=== PATIENT | female | born 1950 | race Hispanic/Latino ===

== ENCOUNTER 2021-10-13 11:33 | Emergency (ER) | payer MEDICARE ==
[~2021-10-13] VITALS: Ht 162.6 cm; Wt 102.1 kg
[2021-10-13] MEDS ORDERED: METOPROLOL TARTRATE 1 MG/ML 5ML VIAL IV SCH (12:00)
[2021-10-13] MEDS ORDERED: LACTATED RINGERS 1000ML 1,000 ML IV SCH (12:00)
[2021-10-13] MEDS ORDERED: LACTATED RINGERS 1000ML 1,000 ML IV ONE (12:05)
[2021-10-13] MEDS ORDERED: METOPROLOL TARTRATE 1 MG/ML 5ML VIAL IV ONE (12:05)
[2021-10-13 12:31] LABS: B-TYPE NATRIURETIC PEPTIDE 164 pg/mL (0-100)
[2021-10-13 12:34] LABS: BASOPHILS % (AUTO) 0.3 % (0.0-5.0); EOSINOPHILS % (AUTO) 1.1 % (0.0-8.0); HEMATOCRIT 44.3 % (36-48); LYMPHOCYTES % (AUTO) 36.9 % (21.0-51.0); MEAN CORPUSCULAR HEMOGLOBIN 30.5 pg (27.0-33.0); MEAN CORPUSCULAR VOLUME 92.5 fL (79-99); MONOCYTES % (AUTO) 9.5 % (3.0-13.0); NEUTROPHILS % (AUTO) 51.9 % (40.0-77.0); PLATELET COUNT (AUTO) 270 K/uL (130-400); RED BLOOD CELL COUNT(AUTO) 4.79 MIL/uL (4.00-5.50); RED CELL DISTRIBUTION WIDTH 14.3 % (11.0-15.5); WHITE BLOOD COUNT (AUTO) 6.2 K/uL (4.8-10.8)
[2021-10-13 12:38] LABS: INR 1.03 (0.85-1.15); PROTHROMBIN TIME 11.2 SEC (9.6-11.6)
[2021-10-13 12:39] LABS: PARTIAL THROMBOPLASTIN TIME 27.2 SEC (26.3-35.5)
[2021-10-13 12:43] LABS: MAGNESIUM 1.8 mg/dL (1.80-2.40)
[2021-10-13 13:07] LABS: ALBUMIN 3.5 g/dL (3.5-5.0); BILIRUBIN,TOTAL 0.4 mg/dL (0.2-1.0); CREATININE 0.7 mg/dL (0.5-1.5); POTASSIUM 4.6 mmol/L (3.5-5.1)
[2021-10-13 14:05] VITALS: BP 120/65
== END 2021-10-13 14:46 | disposition home or self-care (01) ==
LOC: EDH 11:33
DX: I48.20 Chronic atrial fibrillation, unspecified (principal); E78.00 Pure hypercholesterolemia, unspecified; E86.0 Dehydration; Z79.01 Long term (current) use of anticoagulants; Z88.6 Allergy status to analgesic agent
CPT/HCPCS: 36415; 71045; 80053; 82550; 83735; 83880; 84484; 85025; 85378; 85610; 85730; 93005 ×2; 96361; 96374; 99285; J3490; J7120

== ENCOUNTER → 2022-08-27 | Outpatient (CLI) | payer MEDICARE ==
[2022-08-27 12:43] LABS: ALBUMIN 3.8 g/dL (3.5-5.0); CREATININE 0.8 mg/dL (0.5-1.5); POTASSIUM 4.2 mmol/L (3.5-5.1); TOTAL PROTEIN, SERUM 7.3 g/dL (6.0-8.3)
== END | disposition home or self-care (01) ==
LOC: LAB 11:23
PROVIDERS: ATTEND Student in an Organized Health Care Education/Training Program
DX: I10 Essential (primary) hypertension (principal)
CPT/HCPCS: 36415; 80053

== ENCOUNTER → 2022-09-14 | Outpatient (CLI) | payer MEDICARE ==
[~2022-09-14] MED LIST: IOHEXOL-350 50ML VIAL IV ONE
== END | disposition home or self-care (01) ==
LOC: RAH 09:49
PROVIDERS: ATTEND Student in an Organized Health Care Education/Training Program
DX: I25.10 Atherosclerotic heart disease of native coronary artery without angina pectoris (principal)
CPT/HCPCS: 75574; Q9967

== ENCOUNTER → 2022-09-16 | Outpatient (CLI) | payer MEDICARE ==
[2022-09-16 16:38] LABS: CHOLESTEROL 215 mg/dL (<200); HDL CHOLESTEROL 76 mg/dL (35-85); LDL DIRECT 119 mg/dL (0-99); TRIGLYCERIDES 108 mg/dL (30-200)
== END | disposition home or self-care (01) ==
LOC: LAB 11:44
PROVIDERS: ATTEND Student in an Organized Health Care Education/Training Program
DX: E78.5 Hyperlipidemia, unspecified (principal)
CPT/HCPCS: 36415; 80061

== ENCOUNTER → 2023-09-19 | Outpatient (CLI) | payer MEDICARE ==
[2023-09-19 12:27] LABS: CHOLESTEROL 231 mg/dL (<200); HDL CHOLESTEROL 77 mg/dL (35-85); LDL DIRECT 131 mg/dL (0-99); TRIGLYCERIDES 160 mg/dL (30-200)
== END | disposition home or self-care (01) ==
LOC: LAB 10:48
PROVIDERS: ATTEND Student in an Organized Health Care Education/Training Program
DX: E78.5 Hyperlipidemia, unspecified (principal)
CPT/HCPCS: 36415; 80061

== ENCOUNTER → 2023-09-27 | Outpatient (CLI) | payer MEDICARE | END | disposition home or self-care (01) | LOC: RAH 15:34 | PROVIDERS: ATTEND Student in an Organized Health Care Education/Training Program | DX: R09.02 Hypoxemia (principal); M47.815 Spondylosis without myelopathy or radiculopathy, thoracolumbar region | CPT/HCPCS: 71046 ==

== ENCOUNTER → 2024-07-30 | Outpatient (CLI) | payer MEDICARE ==
[2024-07-30 16:46] LABS: CREATININE 0.9 mg/dL (0.5-1.0)
== END | disposition home or self-care (01) ==
LOC: LAB 07-20 11:24
PROVIDERS: ATTEND Student in an Organized Health Care Education/Training Program
DX: I10 Essential (primary) hypertension (principal); I48.91 Unspecified atrial fibrillation
CPT/HCPCS: 36415; 80048

== ENCOUNTER → 2024-08-24 | Outpatient (CLI) | payer MEDICARE ==
[~2024-08-24] MED LIST changes: -IOHEXOL-350 50ML VIAL IV ONE; +IOHEXOL-350 75 ML VIAL IV ONE
--- NOTE | 2024-08-24 15:35 | HMCIMG ---
CT CHEST W/WO CONTRAST HISTORY: Dyspnea COMPARISON: 09/14/2022 TECHNIQUE: Multiple sequential axial images of the chest were obtained from the thoracic inlet through upper abdomen. Patient was given 75 cc of Omnipaque through intravenous route. FINDINGS: There is no evidence of pulmonary nodule or parenchymal disease. No pleural effusion or pericardial effusion is seen. There is no evidence of pneumothorax. There are normal size mediastinal and hilar lymph nodes. The heart is not enlarged. Degenerative changes of the thoracolumbar spine are present. There is no evidence of adrenal nodule. IMPRESSION: 1. No evidence of pulmonary nodule or effusion is seen. CT was performed with one or more following dose reduction techniques: automated exposure control, adjustment of the mA and kv according to patient's size, or use of a iterative reconstruction technique.
== END | disposition home or self-care (01) ==
LOC: RAH 08-06 10:19
PROVIDERS: ATTEND Student in an Organized Health Care Education/Training Program
DX: R06.09 Other forms of dyspnea (principal); M47.815 Spondylosis without myelopathy or radiculopathy, thoracolumbar region
CPT/HCPCS: 71270; Q9967

== ENCOUNTER → 2024-09-03 | Outpatient (CLI) | payer MEDICARE ==
[2024-09-03 12:20] LABS: BASOPHILS # (AUTO) 0.02 K/uL (0.00-0.20); BASOPHILS % (AUTO) 0.5 % (0.0-5.0); EOSINOPHILS # (AUTO) 0.09 K/uL (0.00-0.70); EOSINOPHILS % (AUTO) 2.1 % (0.0-8.0); HEMATOCRIT 41.1 % (36-48); IMMATURE GRANULOCYTE ABSOLUTE 0.02 K/uL (0-1); LYMPHOCYTES # (AUTO) 1.4 K/uL (1.0-4.8); LYMPHOCYTES % (AUTO) 32.8 % (21.0-51.0); MEAN CORPUSCULAR HEMOGLOBIN 31.4 pg (27.0-33.0); MEAN CORPUSCULAR HGB CONC 32.1 g/dL (32.0-36.0); MEAN CORPUSCULAR VOLUME 97.6 fL (79-99); MONOCYTES # (AUTO) 0.4 K/uL (0.1-1.0); MONOCYTES % (AUTO) 9.5 % (3.0-13.0); NEUTROPHILS # (AUTO) 2.4 K/uL (1.8-7.7); NEUTROPHILS % (AUTO) 54.6 % (40.0-77.0); PLATELET COUNT (AUTO) 203 K/uL (130-400); RED BLOOD CELL COUNT(AUTO) 4.21 MIL/uL (4.00-5.50); RED CELL DISTRIBUTION WIDTH 13.8 % (11.0-15.5); WHITE BLOOD COUNT (AUTO) 4.3 K/uL (4.8-10.8)
[2024-09-03 12:31] LABS: CREATININE 0.8 mg/dL (0.5-1.0); POTASSIUM 4.4 mmol/L (3.5-5.1)
[2024-09-03 12:35] LABS: INR 0.99 (0.85-1.15); PROTHROMBIN TIME 11.1 SEC (9.6-11.6)
[2024-09-03 12:36] LABS: PARTIAL THROMBOPLASTIN TIME 28.1 SEC (26.3-35.5)
== END | disposition home or self-care (01) ==
LOC: LAB 10:34
PROVIDERS: ATTEND Internal Medicine Cardiovascular Disease
DX: Z01.812 Encounter for preprocedural laboratory examination (principal); I87.1 Compression of vein; I11.0 Hypertensive heart disease with heart failure; I50.30 Unspecified diastolic (congestive) heart failure; E78.5 Hyperlipidemia, unspecified; I48.91 Unspecified atrial fibrillation; I87.2 Venous insufficiency (chronic) (peripheral); I25.10 Atherosclerotic heart disease of native coronary artery without angina pectoris; Z86.73 Personal history of transient ischemic attack (TIA), and cerebral infarction without residual deficits
CPT/HCPCS: 36415; 80048; 85025; 85610; 85730

== ENCOUNTER → 2024-09-28 | Outpatient (CLI) | payer MEDICARE ==
--- NOTE | 2024-10-04 08:38 | HMCSR ---
APPROVED REPORT Laterality: Bilateral Indications Claudication: , PAD VELOCITY AND DOPPLER WAVEFORM ANALYSIS MANAGER NUCLEAR (R) 171.0cm/sec, Triphasic, MANAGER NUCLEAR (L) 179.4cm/sec, Triphasic, Prof Fem Art. (R) 99.4cm/sec, Triphasic, Prof Fem Art. (L) 93.0cm/sec, Triphasic, Fem Art Prox. (R) 114.6cm/sec, Triphasic, Fem Art Prox. (L) 132.1cm/sec, Triphasic, Fem Art Mid. (R) 97.8cm/sec, Triphasic, Fem Art Mid. (L) 114.6cm/sec, Triphasic, Fem Art Dist (R) 111.8cm/sec, Triphasic, Fem Art Dist. (L) 71.8cm/sec, Triphasic, Pop Art(AK) (R) 88.8cm/sec, Triphasic, Pop Art (AK) (L) 79.4cm/sec, Triphasic, Pop Art (Fossa)(R) 78.1cm/sec, Triphasic, Pop Art (Fossa) (L) 75.9cm/sec, Triphasic, Pop Art(BK) (R) 98.7cm/sec, Triphasic, Pop Art (BK) (L) 87.0cm/sec, Triphasic, TRANSFER STATION OPERATOR Prox. (R) 135.5cm/sec, Triphasic, TRANSFER STATION OPERATOR Prox. (L) 78.7cm/sec, Biphasic, TRANSFER STATION OPERATOR Mid. (R) 136.7cm/sec, Triphasic, TRANSFER STATION OPERATOR Mid. (L) 153.2cm/sec, Biphasic, Mild < 50% TRANSFER STATION OPERATOR Dist. (R) 88.8cm/sec, Biphasic, TRANSFER STATION OPERATOR Dist. (L) 174.8cm/sec, Biphasic, Mild < 50% Per Art Prox. (R) 86.8cm/sec, Biphasic, Per Art Prox. (L) 54.5cm/sec, Biphasic, Per Art Mid. (R) 70.6cm/sec, Biphasic, Per Art Mid. (L) 58.0cm/sec, Biphasic, Per Art Dist. (R) 44.2cm/sec, Biphasic, Per Art Dist. (L) 51.6cm/sec, Biphasic, TAMMIE Prox. (R) 116.9cm/sec, Biphasic, TAMMIE Prox. (L) 73.6cm/sec, Biphasic, TAMMIE Mid. (R) 90.3cm/sec, Biphasic TAMMIE Mid. (L) 64.6cm/sec, Biphasic, TAMMIE Dist. (R) 137.0cm/sec, Biphasic, TAMMIE Dist. (L) 104.9cm/sec, Biphasic, Technologist Impression Multiphasic waveforms in the bilateral lower extremities. Evidence of <50% lesions in the Left TRANSFER STATION OPERATOR. Conclusion Multiphasic waveforms in the bilateral lower extremities. Evidence of <50% lesions in the Left TRANSFER STATION OPERATOR. Conclusion Multiphasic waveforms in the bilateral lower extremities. Evidence of <50% lesions in the Left TRANSFER STATION OPERATOR.
== END | disposition home or self-care (01) ==
LOC: SHCH 11:42
PROVIDERS: ATTEND Student in an Organized Health Care Education/Training Program
DX: I70.211 Atherosclerosis of native arteries of extremities with intermittent claudication, right leg (principal)
CPT/HCPCS: 93925